=== PATIENT | male | born 1945 | race Caucasian/White ===

== ENCOUNTER 2018-05-29 09:00 | Day surgery (SDC) | payer BC ==
[~2018-05-29 09:00] MED LIST: CEFAZOLIN 2 Gram 2 GM/50 ML BAG IVPB ONE
[2018-05-29] MEDS ORDERED: ONDANSETRON HCL IV 4 MG/2 ML VIAL IVP ONE (09:01)
[2018-05-29] MEDS ORDERED: FENTANYL PF 100MCG/2ML VIAL IV ONE (09:01)
[2018-05-29] MEDS ORDERED: DEXAMETHASONE 4 MG/ML 1ML VIAL IVP ONE (09:01)
[2018-05-29] MEDS ORDERED: SEVOFLURANE 250 ML INH ONE (09:01)
[2018-05-29] MEDS ORDERED: LIDOCAINE 2% MDV (20MG/ML) 20ML VIAL IV ONE (09:01)
[2018-05-29] MEDS ORDERED: BUPIVACAINE 0.5% W/EPI MPF 30 ML VIAL IVP ONE (09:01)
[2018-05-29] MEDS ORDERED: PHENYLEPHRINE HCL 10 MG/ML VIAL IVP ONE (09:01)
[2018-05-29] MEDS ORDERED: KETOROLAC 30 MG/ML VIAL IVP ONE (09:01)
[2018-05-29] MEDS ORDERED: MORPHINE SULFATE PF 10MG/10ML VIAL IV ONE (09:01)
[2018-05-29] MEDS ORDERED: MIDAZOLAM HCL 2MG/2ML VIAL IV ONE (09:01)
[2018-05-29] MEDS ORDERED: EPHEDRINE SULFATE 50 MG/ML ML IV ONE (09:01)
[2018-05-29] MEDS ORDERED: GLYCOPYRROLATE 0.2 MG/ML ML IV ONE (09:01)
[2018-05-29] MEDS ORDERED: BUPIVACAINE 0.25% MPF 30ML VIAL IVP ONE (09:01)
[2018-05-29] MEDS ORDERED: PROPOFOL 10 MG/ML VIAL IV ONE (09:01)
[2018-05-29] MEDS ORDERED: BUPIVACAINE LIPOSOME/PF 133MG/10ML VIAL IV ONE (09:01)
--- NOTE | 2018-05-30 08:20 | Operative Note ---
DATE OF SURGERY: 05/29/2018 PREOPERATIVE DIAGNOSIS: Tear of the rotator cuff on the left. POSTOPERATIVE DIAGNOSES: 1. 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 2. Superior labral tear. 3. Profound external impingement, left shoulder. 4. Arthrosis, left distal clavicle. OPERATION: 1. Open repair of a chronically torn left rotator cuff tendon. 2. Left shoulder arthroscopy with intraarticular debridement. 3. Left shoulder open acromioplasty, CA ligament resection, and subacromial bursectomy. 4. Left shoulder distal clavicle resection. Staff Surgeon: Kristopher Juarez MD Anesthesia: General. Preparation: Chloraprep. Individual Considerations: None. PROCEDURE: The patient was taken to the operating room, placed supine on the operating room table. He had a successful induction with general anesthetic. The left lower extremity was prepped and draped in the usual fashion. The patient had a manipulation under anesthesia. He had full motion and no instability. He had a posterior portal identified for arthroscopy. Skin was infiltrated with 0.5% Marcaine with epinephrine prior. An 18-gauge spinal needle was placed in the joint, and the joint was inflated with normal saline with a 60-mL syringe. A stab wound was made, and a blunt-tipped trocar for the scope was easily placed in the joint. The joint was inflated with normal saline. An anterior accessory portal was then made just inferior to the intact long head of the biceps tendon in a retrograde fashion with a Wissinger sergio, and the joint was irrigated out. I now had a good look at the shoulder. The glenohumeral joint was normal. There was a superior labral tear, which was debrided. The long head was intact. There was obvious tear of the supraspinatus tendon. Synovitis anteriorly was debrided. Nothing in the inferior pouch. After irrigation, portals were closed with shalom. The patient had an anterior approach to the subacromial space and distal clavicle. Skin was again infiltrated with 0.5% Marcaine with epinephrine prior. Sharp dissection carried down through skin and subcutaneous tissues. Small veins were coagulated with a Bovie. An anterior deltoid interval was developed. Care was taken not to split the deltoid more than about 4 cm distal to the anterior tip of the acromion to prevent injury to the axillary nerve. Once in the subacromial space, there was a large nolasco of fluid consistent with a tear. The deltoid was then taken subperiosteally off the anterior aspect of the acromion, over the top of the intact CA ligament, and off the anterior aspect of a highly degenerated distal clavicle. CA ligament was resected with a Bovie. Distal clavicle was resected taking about 1 cm. The patient had downsloping acromion with spurs at the AC joint, and anterior acromioplasty was performed taking slightly less than 1 cm tapering towards posteromedially to include the spurs at the AC joint. The undersurface was then smoothed off with a rasp. The patient had a very thick bursa which was debrided out. He basically had a large tear of the rotator cuff basically involving pretty much all the supraspinatus lateral to the long head and extending into the infraspinatus. The teres minor was intact. I was actually able to easily mobilize it. I debrided to good bleeding tendon. I freshened the area of the tuberosity making a shallow trough and then placed multiple retention sutures with #2 Ethibond suture into the end of the freshened tendon and then teresa them into the trough and then tying the notch distally to effect near anatomic repair. I placed the shoulder through a full range of motion to ensure no further impingement. After irrigation, the deltoid was reattached to remaining acromion with multiple interrupted #2 Vicryl going directly through the bony acromion. The periosteal cuff of the distal clavicle was closed with running #2 Vicryl. Anterior deltoid interval was closed with running #1 Vicryl. Subcu was closed with 2-0 plus Vicryl and skin was closed with shalom. About 15 mL of 0.5% Marcaine with epinephrine along with 10 mg of morphine was injected into the subacromial space and a sterile bulky compressive dressing and sling were applied. He tolerated the procedure well. Needle and sponge counts were correct. Estimated blood loss was minimal. He was taken back to recovery in good condition. There were no complications. [facility] CENTERKulwinder
== END 2018-05-29 14:50 | disposition home or self-care (01) ==
LOC: SUR 09:00
PROVIDERS: ATTEND Orthopaedic Surgery
DX: M75.102 Unspecified rotator cuff tear or rupture of left shoulder, not specified as traumatic (principal); S43.432A Superior glenoid labrum lesion of left shoulder, initial encounter; M75.42 Impingement syndrome of left shoulder; M19.012 Primary osteoarthritis, left shoulder; I10 Essential (primary) hypertension; I25.10 Atherosclerotic heart disease of native coronary artery without angina pectoris; E78.00 Pure hypercholesterolemia, unspecified; E11.9 Type 2 diabetes mellitus without complications; H40.9 Unspecified glaucoma; Z95.5 Presence of coronary angioplasty implant and graft
CPT/HCPCS: 23412; 23130; 29822; 23120; 01610; 64415; J1885; J2405; J3010; J0690; C9290; 76942; J2370